=== PATIENT | female | born 1975 | race Caucasian/White ===

== ENCOUNTER 2019-06-18 19:26 | Emergency (ER) | payer BC, OTHER ==
[~2019-06-18] VITALS: Ht 162.6 cm; Wt 65.0 kg
[2019-06-18 20:08] LABS: BACTERIA,URINE FEW /HPF (0-FEW); BILIRUBIN,URINE NEG (NEG); CLARITY,URINE HAZY; COLOR,URINE STRAW; GLUCOSE,URINE NEG (NEG); NITRITE,URINE NEG (NEG); RBC,URINE RARE /HPF (0-2); SQUAMOUS EPITHELIAL CELL,UR FEW /LPF; UROBILINOGEN,URINE 0.2 mg/dL (0.2 mg/dL); WBC,URINE 20-40 /HPF (0-4)
--- NOTE | 2019-06-18 21:23 | PHYS DOC ---
Past History Past Medical History: Hypertension, Renal Disease, Renal Failure, UTI Past Surgical History: Other Additional Past Surgical Histo: kidney transplant Alcohol Use: None Adult General Chief Complaint Chief Complaint: URINARY FREQUENCY HPI HPI 43-year-old female presents with one-day urinary frequency and dysuria. She alma eves it feels like a urinary tract infection. She presents tonight because it has been getting worse all day and the she is a kidney transplant patient with one kidney. He doesn't want to take any chances. Patient denies systemic symptoms, fever or chills. Review of Systems Review of Systems Constitutional: Denies fever or chills [] Eyes: Denies change in visual acuity, redness, or eye pain [] HENT: Denies nasal congestion or sore throat [] Respiratory: Denies cough or shortness of breath [] Cardiovascular: No additional information not addressed in HPI [] GI: Denies abdominal pain, nausea, vomiting, bloody stools or diarrhea [] : Dysuria, increased urinary frequency[] Musculoskeletal: Denies back pain or joint pain [] Integument: Denies rash or skin lesions [] Neurologic: Denies headache, focal weakness or sensory changes [] Endocrine: Denies polyuria or polydipsia [] All other systems were reviewed and found to be within normal limits, except as documented in this note. Current Medications Current Medications Current Medications Medications (Trade) Dose Ordered Sig/Windy Start Time Stop Time Status Last Admin Dose Admin Ceftriaxone Sodium 1 gm/ Sodium Chloride 50 ml @ 100 mls/hr 1X ONCE 06/18/19 21:15 06/18/19 21:44 Allergies Allergies Allergies Coded Allergies Type Severity Reaction Last Updated Verified No Known Drug Allergies 06/18/19 No Physical Exam Physical Exam Constitutional: Well developed, well nourished, no acute distress, non-toxic appearance. [] HENT: Normocephalic, atraumatic, bilateral external ears normal, oropharynx moist, no oral exudates, nose normal. [] Eyes: PERRLA, EOMI, conjunctiva normal, no discharge. [] Neck: Normal range of motion, no tenderness, supple, no stridor. [] Cardiovascular:Heart rate regular rhythm, no murmur [] Lungs & Thorax: Bilateral breath sounds clear to auscultation [] Abdomen: Bowel sounds normal, soft, no tenderness, no masses, no pulsatile masses. [] Skin: Warm, dry, no erythema, no rash. [] Back: No tenderness, no CVA tenderness. [] Extremities: No tenderness, no cyanosis, no clubbing, ROM intact, no edema. [] Neurologic: Alert and oriented X 3, normal motor function, normal sensory function, no focal deficits noted. [] Psychologic: Affect normal, judgement normal, mood normal. [] Current Patient Data Vital Signs Vital Signs Date Time Temp Pulse Resp B/P (MAP) Pulse Ox O2 Delivery O2 Flow Rate FiO2 06/18/19 19:41 98.8 90 16 168/108 (128) 98 Room Air Lab Results Laboratory Tests Test 06/18/19 19:41 Urine Collection Type Unknown Urine Color Straw Urine Clarity Hazy Urine pH 6.0 Urine Specific [place] <=1.005 Urine Protein Neg (NEG-TRACE) Urine Glucose (UA) Neg mg/dL (NEG) Urine Ketones (Stick) Neg mg/dL (NEG) Urine Blood Large (NEG) Urine Nitrite Neg (NEG) Urine Bilirubin Neg (NEG) Urine Urobilinogen Dipstick 0.2 mg/dL (0.2 mg/dL) Urine Leukocyte Esterase Mod (NEG) Urine RBC Rare /HPF (0-2) Urine WBC 20-40 /HPF (0-4) Urine Squamous Epithelial Cells Few /LPF Urine Bacteria Few /HPF (0-FEW) EKG EKG [] Radiology/Procedures Radiology/Procedures [] Course & Med Decision Making Course & Med Decision Making Pertinent Labs and Imaging studies reviewed. (See chart for details) The patient's urinalysis is suggestive of urinary tract infection. I will treat her with 1 g of Rocephin IV. The rest of the patient's labs were unremarkable except for slightly elevated white count. I will discharge the patient with an additional 5 days of Macrobid. She is stable for discharge at this time. [] Dragon Disclaimer Dragon Disclaimer This electronic medical record was generated, in whole or in part, using a voice recognition dictation system. Departure Departure: Impression: Primary Impression: UTI (urinary tract infection) Disposition: 01 HOME, SELF-CARE Condition: STABLE Referrals: TAQUERIA SPEAR MD (PCP) Patient Instructions: Urinary Tract Infection, [id number] Scripts Nitrofurantoin Monohyd/M-Cryst (MACROBID 100 MG CAPSULE) 100 Mg Capsule 1 CAP PO BID for UTI for 5 Days, #10 CAP 0 Refills Prov: ASHLEE VASQUEZ DO 06/18/19 Problem Qualifiers Primary Impression: UTI (urinary tract infection) Urinary tract infection type: acute cystitis Hematuria presence: with hematuria Qualified Codes: N30.01 - Acute cystitis with hematuria ASHLEE VASQUEZ DO Jun 18, 2019 21:23
[2019-06-18 21:24] LABS: BASO % 0 % (0-3); EOS # 0.1 x10^3/uL (0.0-0.7); EOS % 1 % (0-3); HEMATOCRIT 43.1 % (36.0-47.0); LYMPH # 1.4 x10^3/uL (1.0-4.8); LYMPH % 11 % (24-48); MEAN CORPUSCULAR HEMOGLOBIN 29 pg (25-35); MEAN CORPUSCULAR HGB CONC 32 g/dL (31-37); MEAN CORPUSCULAR VOLUME 90 fL (79-100); MONO # 1.1 x10^3/uL (0.0-1.1); MONO % 8 % (0-9); NEUT # 10.7 x10^3uL (1.8-7.7); NEUT % 80 % (31-73); PLATELET COUNT 221 x10^3/uL (140-400); RED BLOOD COUNT 4.78 x10^6/uL (3.50-5.40); RED CELL DISTRIBUTION WIDTH 13.2 % (11.5-14.5); WHITE BLOOD COUNT 13.3 x10^3/uL (4.0-11.0)
[2019-06-18] MEDS ORDERED: IV NORMAL SALINE 50ML 50 ML ONE (21:27)
[2019-06-18] MEDS ORDERED: cefTRIAXone SODIUM 1 GM VIAL ONE (21:27)
[2019-06-18 21:33] LABS: GFR 60.5; POTASSIUM 3.5 mmol/L (3.5-5.1)
[2019-06-18 21:39] LABS: ALBUMIN 3.9 g/dL (3.4-5.0); ALBUMIN/GLOBULIN RATIO 1.1 (1.0-1.7); TOTAL BILIRUBIN 0.5 mg/dL (0.2-1.0); TOTAL PROTEIN 7.3 g/dL (6.4-8.2)
[2019-06-18 22:04] VITALS: BP 139/83
[2019-06-18] MEDS ORDERED: NITR100C62 PO (22:15)
== END 2019-06-18 22:31 | disposition home or self-care (01) ==
LOC: ER 19:26
DX: N30.01 Acute cystitis with hematuria (principal); I12.9 Hypertensive chronic kidney disease with stage 1 through stage 4 chronic kidney disease, or unspecified chronic kidney disease; N18.9 Chronic kidney disease, unspecified; Z87.440 Personal history of urinary (tract) infections; Z94.0 Kidney transplant status
CPT/HCPCS: 36415; 80053; 81001; 85025; 87086; 96365; 99284; J0696

== ENCOUNTER 2020-10-23 03:04 | Emergency (ER) | payer BC ==
[~2020-10-23] VITALS: Ht 162.6 cm; Wt 64.9 kg
[~2020-10-23 03:04] MED LIST: NITR100C62 PO
--- NOTE | 2020-10-23 03:59 | PHYS DOC ---
Past History Past Medical History: Hypertension, Renal Disease, Renal Failure, UTI, Other Past Surgical History: Other Additional Past Surgical Histo: kidney transplant Past Surgical History Colonoscopy with polyp removal Smoking: Non-smoker Alcohol Use: None Drug Use: None General Adult EDM: Chief Complaint: RECTAL BLEED HPI: HPI: 45-year-old female presents with report of bright red blood per rectum after having a bowel movement x1 day. Patient reports recent colonoscopy with polyp removal yesterday morning at approximately 8:30 AM. Patient reports she was told there would be some bleeding but was told to present to the ER for anything "excessive ". Patient reports she has had several bowel movements since yesterday morning that did have some blood. Patient reports waking this morning and noticing "excessive "blood in the toilet. Patient reports feeling ill. Patient also recently diagnosed with an urinary tract infection. Patient was prescribed Bactrim by her PCP. Patient reports last taking some Tylenol appro ximately 6 hours ago. Patient denies use of blood thinners. Patient reports wearing a pad and only noticing a couple drops of blood on pad of during the night. Bleeding seems to be worse after having a bowel movement. Denies dizziness or lightheadedness. Denies abdominal pain. Patient denies exposure to COVID-19. Reports has received Covid vaccinations x2. Review of Systems: Review of Systems: Constitutional: Reports fever and chills Eyes: Denies redness or eye pain HENT: Denies nasal congestion or sore throat Respiratory: Denies cough or shortness of breath Cardiovascular: Denies chest pain or palpitations GI: Denies abdominal pain, nausea, or vomiting; reports bright red blood per rectum : Reports dysuria; denies hematuria Musculoskeletal: Denies back pain or joint pain Integument: Denies rash or skin lesions Neurologic: Denies headache, focal weakness or sensory changes Complete systems were reviewed and found to be within normal limits, except as documented in this note. Current Medications: Current Meds: Current Medications Medications (Trade) Dose Ordered Sig/Windy Start Time Stop Time Status Last Admin Dose Admin Acetaminophen (Tylenol) 500 mg 1X ONCE 10/23/20 04:00 10/23/20 04:01 Sodium Chloride 1,000 ml @ 1,000 mls/hr 1X ONCE 10/23/20 04:00 10/23/20 04:59 Allergies: Allergies: Allergies Coded Allergies Type Severity Reaction Last Updated Verified No Known Drug Allergies 06/18/19 No Physical Exam: PE: Constitutional: Well developed, well nourished, no acute distress, non-toxic appearance HENT: Normocephalic, atraumatic Eyes: Conjunctiva normal, no discharge Neck: Normal range of motion, supple Lungs & Thorax: No respiratory distress, equal chest rise and fall Abdomen: Soft, no tenderness, no guarding/rebound tenderness/distention Skin: Warm, dry, no erythema, no rash Extremities: No tenderness, ROM intact, no edema Neurologic: Alert and oriented X 3, no focal deficits noted Psychologic: Affect normal, judgment normal Current Patient Data: Vital Signs: Vital Signs Date Time Temp Pulse Resp B/P (MAP) Pulse Ox O2 Delivery O2 Flow Rate FiO2 10/23/20 03:12 100.5 112 18 129/85 (100) 96 Room Air EKG: EKG: [] Radiology/Procedures: Radiology/Procedures: [] Heart Score: C/O Chest Pain: N/A Course & Med Decision Making: Course & Med Decision Making Pertinent Lab studies reviewed. (See chart for details) Patient presents with bright red blood per rectum with history of recent colonoscopy with polyp removal. Bleeding appears associated with bowel movement. Blood pressure stable. Patient also noted to be febrile. History of recent UTI diagnosis and started on Bactrim. Fever addressed with Tylenol. Labs obtained and posted to chart. H&H stable. UA with signs of infection. IV Rocephin. Abdomen non-peritoneal. Orthostatic vital signs stable. IV fluid hydration given. Patient stable for discharge with outpatient follow-up with PCP/GI. Discussed findings and plan with patient and family, who acknowledge understanding and agreement. Kwame Disclaimer: Kwame Disclaimer: This electronic medical record was generated, in whole or in part, using a voice recognition dictation system. Departure Departure: Impression: Primary Impression: Rectal bleeding Additional Impressions: Fever Qualified Codes: R50.9 - Fever, unspecified Urinary tract infection Qualified Codes: N30.00 - Acute cystitis without hematuria Disposition: HOME / SELF CARE / HOMELESS Condition: STABLE Referrals: TAQUERIA SPEAR MD (PCP) Patient Instructions: Fever, Adult, [id number], Rectal Bleeding, [id number], Urinary Tract Infection, [id number] Additional Instructions: It is very hard to quantify amount of blood in a toliet bowel as only one drop will turn the water in a toilet bowl red. It is very normal to have some bleeding especially after having a bowel movement due to your recent history of colonoscopy with polyp removal. Your vital signs have been normal and it does not appear you have lost a significant amount of blood based on your blood work. There is a high resistance currently to Bactrim. Given UA findings today, it is recommended to switch to an antibiotic that has shown improved sensitivity for the general population in [place]. Discontinue Bactrim and instead take prescribed antibiotic. Scripts Cephalexin (CEPHALEXIN) 500 Mg Capsule 1 CAP PO TID for UTI for 7 Days, #21 CAP Prov: HIMANSHU RICE DO 10/23/20 HIMANSHU RICE DO Oct 23, 2020 03:59
[2020-10-23 04:02] LABS: BASO # 0.1 x10^3/uL (0.0-0.2); BASO % 1 % (0-3); EOS % 0 % (0-3); HEMATOCRIT 39.6 % (36.0-47.0); HEMOGLOBIN 13.1 g/dL (12.0-15.5); LYMPH # 0.6 x10^3/uL (1.0-4.8); LYMPH % 4 % (24-48); MEAN CORPUSCULAR HEMOGLOBIN 30 pg (25-35); MEAN CORPUSCULAR HGB CONC 33 g/dL (31-37); MEAN CORPUSCULAR VOLUME 90 fL (79-100); MONO # 1.2 x10^3/uL (0.0-1.1); MONO % 8 % (0-9); NEUT # 13.6 x10^3uL (1.8-7.7); NEUT % 88 % (31-73); PLATELET COUNT 152 x10^3/uL (140-400); RED BLOOD COUNT 4.39 x10^6/uL (3.50-5.40); RED CELL DISTRIBUTION WIDTH 13.2 % (11.5-14.5); WHITE BLOOD COUNT 15.5 x10^3/uL (4.0-11.0)
[2020-10-23] MEDS: ACETAMINOPHEN 500 MG TABLET PO ONE (04:03)
[2020-10-23] MEDS: IV NORMAL SALINE 1,000ML 1,000 ML IV ONE (04:03)
[2020-10-23 04:12] LABS: CREATININE 1.3 mg/dL (0.6-1.0); GFR 44.3
[2020-10-23 04:18] LABS: ALBUMIN 3.4 g/dL (3.4-5.0); ALBUMIN/GLOBULIN RATIO 1.1 (1.0-1.7); MAGNESIUM 1.6 mg/dL (1.8-2.4); TOTAL BILIRUBIN 0.4 mg/dL (0.2-1.0); TOTAL PROTEIN 6.6 g/dL (6.4-8.2)
[2020-10-23 04:19] LABS: % BANDS 5 % (0-9); % LYMPHS 5 % (24-48); % MONOS 3 % (0-10); % SEGS 87 % (35-66); PLT ESTIMATE ADEQUATE (ADEQUATE)
[2020-10-23 04:56] LABS: BACTERIA,URINE FEW /HPF (0-FEW); BILIRUBIN,URINE NEG (NEG); CLARITY,URINE HAZY; COLOR,URINE YELLOW; GLUCOSE,URINE NEG (NEG); NITRITE,URINE NEG (NEG); SQUAMOUS EPITHELIAL CELL,UR OCC /LPF; UROBILINOGEN,URINE 0.2 mg/dL (0.2 mg/dL); WBC,URINE >40 /HPF (0-4)
[2020-10-23] MEDS ORDERED: CEPH500C PO (05:03)
[2020-10-23] MEDS ORDERED: cefTRIAXone SODIUM 1 GM VIAL ONE (05:10)
[2020-10-23] MEDS ORDERED: IV NORMAL SALINE 50ML 50 ML ONE (05:10)
[2020-10-23 05:46] VITALS: BP 118/74
== END 2020-10-23 05:50 | disposition home or self-care (01) ==
LOC: ER 03:04
DX: K62.5 Hemorrhage of anus and rectum (principal); N39.0 Urinary tract infection, site not specified; I10 Essential (primary) hypertension
CPT/HCPCS: 36415; 80053; 81001; 83735; 85007; 85025; 87086; 96361; 96365; 99284; J0696; J7030

== ENCOUNTER → 2021-01-20 | Outpatient (CLI) | payer BC ==
[~2021-01-20] MED LIST changes: +CEPH500C PO
--- NOTE | 2021-01-21 14:12 | RAD ---
EXAM: US RENAL BILAT 01/20/2021 3:02 PM INDICATION: Transplant kidney, UTIs. COMPARISON: Renal ultrasound 11/25/2014 TECHNIQUE: Grayscale and color Doppler ultrasound images of the kidneys and bladder. FINDINGS: The right kidney measures 6.5 x 3.8 x 2.7 cm. The [place] left kidney measures 7.5 x 3.5 x 3.3 cm. Na tive kidneys are echogenic with diffuse cortical thinning. The transplant kidney in the right iliac fossa measures 10.9 x 4.5 x 5.2 cm. It has mild hydronephros is. Normal cortical thickness and echogenicity. Probable bladder diverticulum posteriorly on the right. No bladder wall thickening. Left ureteral jet and the transplant ureteral jets are visualized. Are visualized. Prevoid volume 122 cc. Postvoid vol ume 0 cc. Abdominal aorta is normal in caliber. IMPRESSION: 1. Transplant kidney in right iliac fossa with mild hydronephrosis. 2. Atrophic [place] kidneys. 3. Bladder postvoid residual is 0. Electronically signed by: Maira Salas MD (01/21/2021 2:10 PM) [id number]
== END ==
LOC: US 14:54
PROVIDERS: ATTEND Internal Medicine Nephrology
DX: N26.1 Atrophy of kidney (terminal) (principal); N13.30 Unspecified hydronephrosis; N18.2 Chronic kidney disease, stage 2 (mild)
CPT/HCPCS: 76770

== ENCOUNTER → 2021-07-08 | Outpatient (CLI) | payer OTHER ==
--- NOTE | 2021-07-08 10:55 | RAD ---
EXAM: Cervical spine, 3 views. HISTORY: Pain. COMPARISON: None. FINDINGS: 3 views of the cervical spine are obtained. There is no listhesis. The vertebral bodies are normal in height and the disc spaces are preserved. There is facet arthropathy primarily along the r ight greater than left aspect of C2-C3, C3-C4 and C4-C5. IMPRESSION: Right greater than left facet arthropathy at the upper cervical levels. No acute osseous finding. Electronically signed by: Nancy Gregorio MD (07/08/2021 10:53 AM) [id number]
== END ==
LOC: RAD 10:30
PROVIDERS: ATTEND Physician Assistant
DX: M47.812 Spondylosis without myelopathy or radiculopathy, cervical region (principal)
CPT/HCPCS: 72040